=== PATIENT | female | born 1950 | race African-American/Black ===

== ENCOUNTER 2016-11-17 16:13 | Emergency (ER) | payer MEDICARE, BC ==
[~2016-11-17] VITALS: Ht 170.2 cm; Wt 108.9 kg
[~2016-11-17 16:13] MED LIST: APIX5TAB PO; IRBE300T3 PO; PRAV40TA2 PO; PRED-220 PO; TRAM50TA PO; TRIA1TAB5 PO
[2016-11-17] MEDS ORDERED: AMLO5TAB2 PO (16:43)
--- NOTE | 2016-11-17 16:44 | PHYS DOC ---
Past Medical History Past Medical History: High Cholesterol, Hypertension Additional Past Medical Histor: RIGHT BREAST CANCER, LEFT CHEST PORT-O-CATH Past Surgical History: Hysterectomy, Tonsillectomy Additional Past Surgical Histo: BILATERAL MASTECTOMY Alcohol Use: None Drug Use: None Adult General Chief Complaint Chief Complaint: HYPERTENSION HPI HPI Patient is a 66 year old female with chronic hypertension who presents from oncology clinic for evaluation of hypertension. She notes uncontrolled hypertension usually in the 180s to 190s systolic. Her blood pressure was in the 200s in clinic, so she was recommended to come to the emergency department. She has no symptoms at this time. States she is taking all of her medications. Review of Systems Review of Systems Constitutional: Denies fever or chills [] Eyes: Denies change in visual acuity, redness, or eye pain [] HENT: Denies nasal congestion or sore throat [] Respiratory: Denies cough or shortness of breath [] Cardiovascular: No additional information not addressed in HPI [] GI: Denies abdominal pain, nausea, vomiting, bloody stools or diarrhea [] : Denies dysuria or hematuria [] Musculoskeletal: Denies back pain or joint pain [] Integument: Denies rash or skin lesions [] Neurologic: Denies headache, focal weakness or sensory changes [] Endocrine: Denies polyuria or polydipsia [] Allergies Allergies Allergies Coded Allergies Type Severity Reaction Last Updated Verified codeine Adverse Reaction Intermediate SICK OF STOMACH 02/26/16 Yes Physical Exam Physical Exam Constitutional: Well developed, well nourished, no acute distress, non-toxic appearance. [] HENT: Normocephalic, atraumatic, bilateral external ears normal, oropharynx moist, nose normal. [] Eyes: PERRLA, EOMI. [] Neck: Normal range of motion, supple. [] Cardiovascular:Heart rate regular rhythm [] Lungs & Thorax: Bilateral breath sounds clear to auscultation [] Abdomen: Bowel sounds normal, soft, no tenderness. [] Skin: Warm, dry, no erythema, no rash. [] Back: Normal range of motion. [] Extremities: No tenderness, ROM intact, no edema. [] Neurologic: Alert and oriented X 3, normal motor function, normal sensory function, no focal deficits noted. [] Psychologic: Affect normal, judgement normal, mood normal. [] Current Patient Data Vital Signs Vital Signs Date Time Temp Pulse Resp B/P (MAP) Pulse Ox O2 Delivery O2 Flow Rate FiO2 11/17/16 16:51 71 20 192/96 (128) 98 Room Air 11/17/16 16:33 98.3 98.3 Course & Med Decision Making Course & Med Decision Making She is not prior tried amlodipine. She states for months she has been uncontrolled with hypertension. Will add low-dose of blood pain and recommend she follow-up with her primary care doctor as scheduled on December 03. Return precautions given. She understands and agrees with plan. Dragon Disclaimer Dragon Disclaimer This electronic medical record was generated, in whole or in part, using a voice recognition dictation system. Departure Departure Impression: Primary Impression: Asymptomatic hypertension Disposition: HOME, SELF-CARE Condition: STABLE Referrals: DIMPLE GARCIA MD (PCP) Patient Instructions: Hypertension, [id number] Additional Instructions: Take amlodipine in addition to your usual daily medications. Follow-up with your primary care doctor. Return for any concerns. Scripts Amlodipine Besylate (AMLODIPINE BESYLATE) 5 Mg Tablet 5 MG PO DAILY for 17 Days, #17 TAB Prov: Colt BOYER MD 11/17/16 Colt BOYER MD November 17, 2016 16:44
[2016-11-17 16:51] VITALS: BP 192/96
== END 2016-11-17 16:52 | disposition home or self-care (01) ==
LOC: ER 16:13
DX: I10 Essential (primary) hypertension (principal); E78.00 Pure hypercholesterolemia, unspecified; Z90.13 Acquired absence of bilateral breasts and nipples; Z90.710 Acquired absence of both cervix and uterus; Z88.5 Allergy status to narcotic agent
CPT/HCPCS: 99283

== ENCOUNTER → 2017-08-02 | Outpatient (CLI) | payer MEDICARE, BC | END | disposition home or self-care (01) | LOC: US 13:04 | DX: N18.3 Chronic kidney disease, stage 3 (moderate) (principal); N28.1 Cyst of kidney, acquired | CPT/HCPCS: 76770 ==

== ENCOUNTER 2018-09-08 11:40 | Emergency (ER) | payer MEDICARE, BC ==
[~2018-09-08] VITALS: Ht 172.7 cm; Wt 108.9 kg
[~2018-09-08 11:40] MED LIST changes: +AMLO5TAB10 PO
[2018-09-08] MEDS ORDERED: METOPROLOL TARTRATE 5 MG/5 ML VIAL. IVP ONE (12:15)
[2018-09-08 12:17] LABS: BASO % 1 % (0-3); EOS # 0.2 x10^3/uL (0.0-0.7); EOS % 3 % (0-3); HEMATOCRIT 36.7 % (36.0-47.0); HEMOGLOBIN 11.8 g/dL (12.0-15.5); LYMPH # 1.9 x10^3/uL (1.0-4.8); LYMPH % 38 % (24-48); MEAN CORPUSCULAR HEMOGLOBIN 28 pg (25-35); MEAN CORPUSCULAR HGB CONC 32 g/dL (31-37); MEAN CORPUSCULAR VOLUME 87 fL (79-100); MONO # 0.6 x10^3/uL (0.0-1.1); MONO % 11 % (0-9); NEUT # 2.4 x10^3uL (1.8-7.7); NEUT % 47 % (31-73); PLATELET COUNT 251 x10^3/uL (140-400)
[2018-09-08 12:25] LABS: CALCIUM 8.8 mg/dL (8.5-10.1); CREATININE 1.2 mg/dL (0.6-1.0); GFR 53.7; POTASSIUM 3.9 mmol/L (3.5-5.1)
[2018-09-08 12:31] LABS: ALBUMIN 3.3 g/dL (3.4-5.0); ALBUMIN/GLOBULIN RATIO 0.8 (1.0-1.7); TOTAL BILIRUBIN 0.5 mg/dL (0.2-1.0); TOTAL PROTEIN 7.6 g/dL (6.4-8.2)
[2018-09-08 13:44] VITALS: BP 157/83
--- NOTE | 2018-09-08 13:53 | PHYS DOC ---
Past Medical History Past Medical History: High Cholesterol, Hypertension Additional Past Medical Histor: RIGHT BREAST CANCER, LEFT CHEST Past Surgical History: Hysterectomy, Tonsillectomy Additional Past Surgical Histo: BILATERAL MASTECTOMY Alcohol Use: None Drug Use: None Adult General Chief Complaint Chief Complaint: HYPERTENSION HPI HPI Patient is a 68 year old female who presents with hypertension. The patient was sent to the ED from Dr. Rodriguez's office due to a high blood pressure reading in the office today. She denies chest pain, diaphoresis or SOA. She states that her primary care provider changed her blood pressure medication yesterday. Review of Systems Review of Systems Constitutional: Denies fever or chills [] Eyes: Denies change in visual acuity, redness, or eye pain [] HENT: Denies nasal congestion or sore throat [] Respiratory: Denies cough or shortness of breath [] Cardiovascular: No additional information not addressed in HPI [] GI: Denies abdominal pain, nausea, vomiting, bloody stools or diarrhea [] : Denies dysuria or hematuria [] Musculoskeletal: Denies back pain or joint pain [] Integument: Denies rash or skin lesions [] Neurologic: Denies headache, focal weakness or sensory changes [] Endocrine: Denies polyuria or polydipsia [] All other systems were reviewed and found to be within normal limits, except as documented in this note. Current Medications Current Medications Current Medications Medications (Trade) Dose Ordered Sig/Leslie Start Time Stop Time Status Last Admin Dose Admin Metoprolol Tartrate (Lopressor Vial) 5 mg 1X ONCE 09/08/18 12:15 09/08/18 12:16 DC 09/08/18 12:45 2.5 MG Allergies Allergies Allergies Coded Allergies Type Severity Reaction Last Updated Verified codeine Adverse Reaction Intermediate SICK OF STOMACH 02/26/16 Yes Physical Exam Physical Exam Constitutional: Well developed, well nourished, no acute distress, non-toxic appearance. [] HENT: Normocephalic, atraumatic, bilateral external ears normal, oropharynx moist, no oral exudates, nose normal. [] Eyes: PERRLA, EOMI, conjunctiva normal, no discharge. [] Neck: Normal range of motion, no tenderness, supple, no stridor. [] Cardiovascular:Heart rate regular rhythm, no murmur [] Lungs & Thorax: Bilateral breath sounds clear to auscultation [] Abdomen: Bowel sounds normal, soft, no tenderness, no masses, no pulsatile masses. [] Skin: Warm, dry, no erythema, no rash. [] Neurologic: Alert and oriented X 3, normal motor function, normal sensory function, no focal deficits noted. [] Psychologic: Affect normal, judgement normal, mood normal. [] Current Patient Data Vital Signs Vital Signs Date Time Temp Pulse Resp B/P (MAP) Pulse Ox O2 Delivery O2 Flow Rate FiO2 09/08/18 13:44 67 16 97 09/08/18 12:45 168/80 09/08/18 11:55 98.5 Room Air 98.5 Lab Values Laboratory Tests Test 09/08/18 12:00 White Blood Count 5.0 x10^3/uL (4.0-11.0) Red Blood Count 4.20 x10^6/uL (3.50-5.40) Hemoglobin 11.8 g/dL (12.0-15.5) L Hematocrit 36.7 % (36.0-47.0) Mean Corpuscular Volume 87 fL (79-100) Mean Corpuscular Hemoglobin 28 pg (25-35) Mean Corpuscular Hemoglobin Concent 32 g/dL (31-37) Red Cell Distribution Width 15.0 % (11.5-14.5) H Platelet Count 251 x10^3/uL (140-400) Neutrophils (%) (Auto) 47 % (31-73) Lymphocytes (%) (Auto) 38 % (24-48) Monocytes (%) (Auto) 11 % (0-9) H Eosinophils (%) (Auto) 3 % (0-3) Basophils (%) (Auto) 1 % (0-3) Neutrophils # (Auto) 2.4 x10^3uL (1.8-7.7) Lymphocytes # (Auto) 1.9 x10^3/uL (1.0-4.8) Monocytes # (Auto) 0.6 x10^3/uL (0.0-1.1) Eosinophils # (Auto) 0.2 x10^3/uL (0.0-0.7) Basophils # (Auto) 0.0 x10^3/uL (0.0-0.2) Sodium Level 143 mmol/L (136-145) Potassium Level 3.9 mmol/L (3.5-5.1) Chloride Level 106 mmol/L (98-107) Carbon Dioxide Level 28 mmol/L (21-32) Anion Gap 9 (6-14) Blood Urea Nitrogen 18 mg/dL (7-20) Creatinine 1.2 mg/dL (0.6-1.0) H Estimated GFR (Cockcroft-Gault) 53.7 BUN/Creatinine Ratio 15 (6-20) Glucose Level 99 mg/dL (70-99) Calcium Level 8.8 mg/dL (8.5-10.1) Total Bilirubin 0.5 mg/dL (0.2-1.0) Aspartate Amino Transferase (AST) 18 U/L (15-37) Alanine Aminotransferase (ALT) 22 U/L (14-59) Alkaline Phosphatase 95 U/L (46-116) Total Protein 7.6 g/dL (6.4-8.2) Albumin 3.3 g/dL (3.4-5.0) L Albumin/Globulin Ratio 0.8 (1.0-1.7) L Laboratory Tests 09/08/18 12:00 Laboratory Tests 09/08/18 12:00 EKG EKG [] Radiology/Procedures Radiology/Procedures [] Course & Med Decision Making Course & Med Decision Making Pertinent Labs and Imaging studies reviewed. (See chart for details) []The patient was given a dose of lopressor in the ED. She is to continue her home medications. Dragon Disclaimer Dragon Disclaimer This electronic medical record was generated, in whole or in part, using a voice recognition dictation system. Departure Departure Impression: Primary Impression: Hypertension Disposition: 01 HOME, SELF-CARE Condition: STABLE Referrals: ISAÍAS GREEN MD (PCP) Patient Instructions: Hypertension Additional Instructions: Continue your at home medications. Follow-up with Dr. Rodriguez at your next scheduled appointment. If worsening return to the emergency department. REYNOLD SMITH APRN Sep 08, 2018 13:53
--- NOTE | 2018-09-08 14:17 | EKG ---
[facility] [address] [place] [address] Test Date: 2018-09-08 Test Time: 12:28:26 Pat Name: AUGIE SEE Department: Room: Gender: F [employer]er: : 1950 Requested By: REYNOLD SMITH Order Number: [id number] Reading MD: Zelalem Vail MD Measurements Intervals [place] Rate: 67 P: 43 IA: 192 QRS: -1 QRSD: 96 T: 161 QT: 400 QTc: 426 Interpretive Statements SINUS RHYTHM NON-SPECIFIC ST/T CHANGES Electronically Signed On 09-09-2018 17:25:18 CDT by Zelalem Vail MD
== END 2018-09-08 14:10 | disposition home or self-care (01) ==
LOC: ER 11:40
DX: I10 Essential (primary) hypertension (principal); E78.00 Pure hypercholesterolemia, unspecified; Z88.5 Allergy status to narcotic agent
CPT/HCPCS: 36415; 80053; 85025; 93005; 96374; 99284; J3490